=== PATIENT | female | born 1970 | race Caucasian/White ===

== ENCOUNTER 2025-05-09 15:31 | Inpatient (IN) | payer BC, SELFPAY ==
[2025-05-09 11:17] VITALS: BP 151/64
--- NOTE | 2025-05-09 11:38 | ED.GENMED ---
History of Present Illness
General
Chief Complaint: Musculo-Skeletal Complaint
Source: patient
Exam Limitations: none
Time Seen by Provider: 05/09/25 11:25
History of Present Illness
History of Present Illness:
See MDM
Past History
Past History
ED Past Medical History: None
ED Past Surgical History: None
Social History
Tobacco: Non-smoker
Alcohol: None
Phy Exam
Physical Exam
Physical Exam:
See MDM
Course
Orders/Labs/Results
Orders:
Orders
05/09/25 11:33
HYDROmorphone [Dilaudid] 1 mg IV NOW STA
Ondansetron Injectable [Zofran] 4 mg IV NOW STA
Foot, Left 3 View [CR Foot - Left Min 3 Views] Urgent
Comment:
Reason For Exam: fall, pain to dorsum of Left foot
Knee, Right 4 or More Views [CR Knee- Right 4 Or More View*] Urgent
Comment:
Reason For Exam: fall, R knee pain and deformity
05/09/25 13:20
Knee Immobilizer Right-Treatme ONCE
HYDROmorphone [Dilaudid] 1 mg IV NOW STA
05/09/25 13:21
Case Management Consult ONCE
Case Management Consult: Discharge Planning
Pt Eval And Treat Urgent
Activity Level: Out of Bed-Early Mobility
05/09/25 14:41
Consult Orthopedic [ORTHOPEDIC CONSULT] Routine
Consulting Provider: Letitia Bhardwaj I.
Was physician already notified: Yes
05/09/25 14:54
Complete Blood Count/With Diff Urgent
Comprehensive Metabolic Panel Urgent
05/09/25 14:55
CT Lower Ext W/o Iv Cont Rt Urgent
Comment:
Reason For Exam: R knee injury
05/09/25 14:57
Ondansetron Injectable [Zofran] 4 mg IV NOW STA
Abnormal Lab Results
05/09/25
14:54
WBC 14.0 H 10^3/uL
(4.8-10.8)
Hct 36.8 L %
(37.0-47.0)
MPV 11.2 H fL
(7.4-10.4)
Abs Immat Gran (auto) 0.1 H 10^3/uL
(0-0.05)
Absolute Neuts (auto) 9.8 H 10^3/uL
(1.4-6.5)
05/09/25 14:54
Vital Signs
Initial and Last Documented VS:
Initial Vital Signs
Temp Pulse Resp BP Pulse Ox
98.3 F 54 20 151/64 98
05/09/25 11:17 05/09/25 11:17 05/09/25 11:17 05/09/25 11:17 05/09/25 11:17
Last Documented Vital Signs
Temp Pulse Resp BP Pulse Ox
98.3 F 54 20 151/64 98
05/09/25 11:17 05/09/25 11:17 05/09/25 11:17 05/09/25 11:17 05/09/25 11:43
MDM/Problems Addressed
Differential Diagnosis Includes:
Note:
CHIEF COMPLAINT(S)
Right knee injury and left foot pain following a fall.
HISTORY OF PRESENT ILLNESS
The patient is a 55-year-old female who presented following an incident where she 'surfed on the [employer],' resulting in an injury to the Right knee and minor pain in the left foot. The incident occurred as she was walking out the back door. The
patient described significant difficulty in moving the knee, expressing that it is 'really hard to move.' Examination reveals a notable divot near the knee suggesting potential ligamentous injury, possibly a torn ligament, with concerns for both
ligamentous damage and possible patellar fracture. Tenderness is present around the knee, and there is observable patellar elevation, which is concerning for structural changes. The patient reports mild discomfort in the left foot, which appears
less severe and might be a sprain; however, an x-ray was deemed necessary due to the distracting nature of the knee injury.
No known allergies to sulfa drugs. She mentioned a previous episode of nausea following anesthesia, but no reactions to pain medication were noted. Pain management with Dilaudid (hydromorphone) is planned due to the severity of the knee pain and
potential need for manipulation during imaging. Prophylactic anti-nausea medication will also be administered.
EXTERNAL RECORDS REVIEWED
The patient referenced a past admission for a brain bleed at [facility] where she received anesthesia medications that resulted in sleep.
PHYSICAL EXAM
General: Alert, no acute distress.
Skin: Warm, dry.
Head: Normocephalic, atraumatic
Neck: Appears supple, trachea midline.
Eyes, Ears, Nose, Mouth, and Throat: Moist mucous membranes
Cardiovascular: No signs of cyanosis
Respiratory: Respirations are non-labored.
Abdomen: Non-distended
Musculoskeletal: Deformity to right knee with small abrasion above patella. Patella appears to be high riding. Decreased range of motion secondary to pain. Distal extremity neurovascularly intact. Very mild tenderness to dorsum of left foot
without evidence of vascular injury
Neurological: No focal neurological deficit observed.
Psychiatric: Cooperative, appropriate mood and affect.
PLAN
1. Administer Dilaudid for pain management.
2. Prophylactic administration of anti-nausea medication.
3. Obtain x-rays of the left knee and left foot to assess for fractures or other structural damage.
4. Evaluate the possibility of admitting the patient for short-term rehabilitation if necessary.
DIFFERENTIAL DIAGNOSIS
The Differential Diagnosis includes, in no particular order and is not limited to:
1. Ligamentous injury of the knee
2. Patellar fracture
3. Knee dislocation
4. Meniscal tear
5. Ankle sprain
6. Fracture of the ankle
7. Tibial plateau fracture
8. Osteoarthritis exacerbation
9. Bursitis
10. Soft tissue contusion.
SUMMARY OF ENCOUNTER
The patient presented following a fall resulting in significant difficulty moving the left knee and minor pain in the left foot. Examination suggested a possible ligamentous injury and suspected patellar fracture of the left knee. Mild discomfort in
the left foot was noted, suspected to possibly be a sprain. X-rays confirmed a right patellar fracture and a fourth metatarsal fracture in the left foot. Due to these injuries, the patient is unable to bear weight. Case management and physical
therapy were consulted. Orthopedic team is aware of the fractures, and the patient will be admitted for pain control and further orthopedic evaluation to possibly address the fractures in the inpatient setting.
DISPOSITION
Admit
ASSESSMENT
- Right patellar fracture
- Left fourth metatarsal fracture
MANAGEMENT OF THE PATIENTS CARE WAS DISCUSSED WITH
Case discussed with physical therapy, case management, and orthopedics for further evaluation and potential surgical intervention.
MEDICAL DECISION MAKING
-Complexity of Data Reviewed:
Chronic conditions affecting care include the knee ligamentous injury, patellar fracture, potential knee dislocation, meniscal tear, ankle sprain, ankle fracture, tibial plateau fracture, osteoarthritis exacerbation, bursitis, and soft tissue
contusion.
-Data:
- Category 3:
Discussion of management with physical therapy, case management, and orthopedics concerning further management planning for the fractures and potential surgical intervention.
-Risk:
Due to the confirmed fractures, the patient is at risk for significant morbidity without appropriate management. Prescription medication was prescribed for pain management and the need for inpatient care for potential surgical intervention was
determined.
*Pulse Oximetry
SaO2: 98
Oxygen Mode of Delivery: Room air
Patient hypoxic: no
*Critical Care Note
Total Time (30-74mins, 75-104mins- exclusive of procedures): Not Applicable
ED Attending Note
-
Portions of this chart may have been created with voice recognition software.� Occasional wrong word or��sound alike� substitutions may have occurred due to the inherent limitations of voice recognition software.
Discharge Plan
Departure
Patient Disposition: Admit
Date of Disposition: 05/09/25
Time of Disposition: 15:14
Admit to: Med/Surg
Presentation/result/management discussed w/ accepting MD/DO: Hospitalist
Discharge Problem:
Patellar fracture
Referrals:
UNKNOWN - PT DOES,NOT KNOW [Family Provider]
Interventions
Interventions:
*General Assessment Last Done: 05/09/25 11:17
ED-Musculoskeletal Assessment Last Done: 05/09/25 11:29
Discharge Date and Time
Print Language: YI
[2025-05-09] MEDS: ZOFRAN 4 MG IV ×2 (11:54→15:14)
[2025-05-09] MEDS: DILAUDID 1 MG IV ×2 (11:54→14:01)
--- NOTE | 2025-05-09 14:52 | CM ---
Patient seen at bedside with present in ED> Patient states that she has 13 steps to enter home. Patient has no DME at home. Patient lives in [facility] and her PCP is Dr. Sotelo, patient uses the [facility] in [facility]. Patient stated she
is awaiting admission due to probable need for surgery on her knee. Patient seen by therapy and pending pain levels and needing immobilizer for assessment to clarify level of care needed. Patient stated that she would be open to SNF or Acute Rehab
pending recommendations. CM updated physician and await medical treatment plan. CM will continue to follow for discharge planning needs.
Plan;SNF vs Acute Rehab pending medical treatment plan
[2025-05-09 15:05] LABS: Hematocrit 36.8 % (37.0-47.0); Hemoglobin 12.4 g/dL (12.0-16.0); Mean Corp Hgb Conc. 33.7 g/dL (33.0-37.0); Mean Corpuscular Volume 84.0 fL (81.0-99.0); Nucleated Red Blood Cells % 0 %; Platelet Count 345 10^3/uL (130-400); Red Cell Dist. Width 13.3 % (11.5-14.5)
[2025-05-09 15:21] LABS: ALT (SGPT) 15 U/L (0-35); AST (SGOT) 18 U/L (14-36); Albumin 4.4 g/dl (3.5-5.0); Alkaline Phosphatase 74 U/L (38-126); Blood Urea Nitrogen 16 mg/dl (7-17); Calcium 9.4 mg/dl (8.4-10.2); Carbon Dioxide 26 mmol/L (22-30); Chloride 107 mmol/L (98-107); Glucose 154 mg/dl (70-99); Potassium 4.7 mmol/L (3.5-5.1); Total Protein 7.3 g/dl (6.3-8.2); eGFR > 60.00
--- NOTE | 2025-05-09 15:25 | HPS.HSE ---
Family Physician
-
Family Physician: NOT KNOW UNKNOWN - PT DOES
Chief Complaint
-
Right knee and left foot pain
History of Present Illness
Ms. Tate is a 55-year-old female with a medical history of breast cancer (status post bilateral mastectomy, lymph node resection, chemo and radiation), hypertension, and GERD who presented from home with right knee and left foot pain following
a mechanical fall. She sustained a small horizontal laceration on her anterior right knee with generalized swelling of the joint and some mild ecchymosis on the lateral aspect of her left foot. Her vital signs have remained stable and her lab work
has been generally unremarkable. Imaging of her right knee shows an acute comminuted and displaced patellar fracture. X-ray of her left foot shows a possible subacute fracture of the base of the fourth metatarsal. Orthopedics was notified. Her
right knee was immobilized with a brace. She was given pain medications and admitted for further evaluation and management.
Medical History
Past Medical History
Past Medical History: Reports Other
Additional Past Medical History:
breast cancer (status post bilateral mastectomy, lymph node resection, chemo and radiation), hypertension, and GERD
Past Surgical History: Reports Other
Additional Past Surgical History:
Bilateral mastectomy and lymph node resection
Social History
Tobacco: Non-smoker
Alcohol: None
Personal:
Living: With Family
Family History
Family History: Not pertinent
Allergies / Home Medications
Allergies reflects when Allergies were last updated in [facility].
Home Medications with original date entered in [facility]
Allergy/Medication List:
Allergies
Allergy/AdvReac Type Severity Reaction Status Date / Time
Penicillins Allergy Unknown Verified 05/09/25 11:17
Sulfa (Sulfonamide Allergy Unknown Verified 05/09/25 11:17
Antibiotics)
Home Medications
anastrozole 1 mg tablet 1 mg PO DAILY 05/09/25
carvedilol 6.25 mg tablet (Coreg) 6.25 mg PO BID 05/09/25
ergocalciferol (vitamin D2) 1,250 mcg (50,000 unit) capsule 1,250 mcg PO MO 05/09/25
losartan 100 mg tablet 100 mg PO DAILY 05/09/25
pantoprazole 40 mg tablet,delayed release (Protonix) 40 mg PO DAILY 05/09/25
Review of Systems
-
History Source: Patient
A 12 point ROS was completed and negative except as noted: Yes
Musculoskeletal: Reports Other (Right knee pain and swelling, left lateral foot pain)
Physical Exam
Vital Signs
Vital Signs
Temp Pulse Resp BP Pulse Ox
98.3 F 54 20 151/64 98
05/09/25 11:17 05/09/25 11:17 05/09/25 11:17 05/09/25 11:17 05/09/25 11:43
Physical Exam
General: No Apparent Distress
Laboratory Results
-
05/09/25 14:54
05/09/25 14:54
Laboratory Results
Total Bilirubin 0.5 mg/dl (0.2-1.3) 05/09/25 14:54
AST 18 U/L (14-36) 05/09/25 14:54
ALT 15 U/L (0-35) 05/09/25 14:54
Alkaline Phosphatase 74 U/L (38-126) 05/09/25 14:54
Impression/Plan
-
General: No Apparent Distress, Comfortable and Conversant
HEENT: NormoCephalic, Moist mucous membranes, Atraumatic
Respiratory: Clear and Non Labored Respirations
Cardiac: S1/S2 and Regular Rhythm; No Rub or Gallop
GI: Soft, Non Tender, Non Distended and Normal Bowel Sounds
Musculoskeletal: Right knee in immobilizer, anterior right knee with approximately 1 cm horizontal laceration in generalized swelling, mild ecchymosis of left lateral foot
Skin: Warm and dry
: NO [place]
Neuro: Awake, Alert, Nonfocal/grossly intact
Psych: Calm and Intact Judgment/Insight
Ms. Tate is a 55-year-old female with a medical history of breast cancer (status post bilateral mastectomy, lymph node resection, chemo and radiation), hypertension, and GERD who presented from home with right knee and left foot pain following
a mechanical fall. She sustained a small horizontal laceration on her anterior right knee with generalized swelling of the joint and some mild ecchymosis on the lateral aspect of her left foot. Her vital signs have remained stable and her lab work
has been generally unremarkable. Imaging of her right knee shows an acute comminuted and displaced patellar fracture. X-ray of her left foot shows a possible subacute fracture of the base of the fourth metatarsal. Orthopedics was notified. Her
right knee was immobilized with a brace. She was given pain medications and admitted for further evaluation and management.
Right patellar fracture:
- Keep in immobilizer, nonweightbearing for now
- Pain control as needed
- Ortho consulted
Left foot pain, possible fracture:
- X-ray shows possible fracture of base of fourth metatarsal
- Nonweightbearing for now
- Orthopedics consulted
Hypertension:
- Continue home losartan 100 mg p.o. daily and carvedilol 6.25 mg p.o. daily
GERD:
- Continue home Protonix daily
History of breast cancer:
- Status post bilateral mastectomy, lymph node resection, chemoradiation
- Primary oncology team at [place], breast surgeon at [facility]
- Currently without recurrence
- Continue anastrozole 1 mg daily
DVT prophylaxis: Subcu heparin
CODE STATUS: Full code
[2025-05-09 15:43] LABS: Sodium 138 mmol/L (135-145)
[2025-05-09 16:32] VITALS: BP 122/74
[2025-05-09 17:55] VITALS: BP 160/72
[2025-05-09 17:56] VITALS: BMI 24.7
[2025-05-09] MEDS: HEPARIN 5000 UNITS SC ×2 (18:29→22:41)
[2025-05-09] MEDS: ROXICODONE 5 MG PO ×2 (18:30→22:45)
--- NOTE | 2025-05-09 18:46 | PTCARENOTE ---
pt arrived to floor at 1740, on bedrest, knee immobilizer in place. small 1 inch laceration over knee with beginning of bruising, placed a silicone foam. faint bluish bruising on lateral aspect of left foot. + pedals/sensation/toe wiggle. bed low
HOB up, call mtz in reach, dinner ordered.
--- NOTE | 2025-05-09 20:12 | CON.ORTHO ---
Consultation
-
Date/Time Consultation Requested: 05/09/2025 1421
Date/Time Consultation Performed: 05/09/2025 1930
Requesting Provider: Dr. Ayaan Roberts
Performing Provider: GALINDO Barnard
Reason for Consultation: L foot fx, R patella fx
Consultation - Orthopedics
History
55-year-old female presenting from [place] emergency room at admission for mechanical fall with direct impact of her right knee and possible twisting injury of her left foot and ankle. She had inability bear weight was seen in the emergency room
and diagnosed with a fourth metatarsal fracture of the left side and displaced right patella fracture. For social concerns of the amatory status and fall risk he was admitted. She denies any prodromal pain of either lower extremity. Denies any
other injury sustained. She does report a small superficial laceration of her right knee and swelling of the right knee. Denies any associated paresthesias. Denies any chronic knee or foot and ankle pain bilaterally.
Allergies / Home Medications
Past Medical History: Reports Other
Additional Past Medical History:
breast cancer (status post bilateral mastectomy, lymph node resection, chemo and radiation), hypertension, and GERD
Past Surgical History: Reports Other
Additional Past Surgical History:
Bilateral mastectomy and lymph node resection
Social History
Tobacco: Non-smoker
Alcohol: None
Personal:
Living: With Family
Family History
Family History: Not pertinent
Allergies / Home Medications
Allergy/AdvReac Type Severity Reaction Status Date / Time
Penicillins Allergy Unknown Verified 05/09/25 11:17
Sulfa (Sulfonamide Allergy Unknown Verified 05/09/25 11:17
Antibiotics)
�Medication �Instructions �Recorded
anastrozole 1 mg tablet 1 mg PO DAILY 05/09/25
carvedilol 6.25 mg tablet (Coreg) 6.25 mg PO BID 05/09/25
ergocalciferol (vitamin D2) 1,250 1,250 mcg PO MO 05/09/25
mcg (50,000 unit) capsule
losartan 100 mg tablet 100 mg PO DAILY 05/09/25
pantoprazole 40 mg tablet,delayed 40 mg PO DAILY 05/09/25
release (Protonix)
Vital Signs / Lab Results
Temp Pulse Resp BP Pulse Ox
98.4 F 61 15 160/72 97
05/09/25 17:55 05/09/25 17:55 05/09/25 17:55 05/09/25 17:55 05/09/25 17:55
PHYSICAL EXAM:
Focused examination of the left lower extremity shows skin intact. There is mild amount of ecchymosis in the area of the sinus tarsi. There is no tenderness about the fifth metatarsal head proximally or to the mid distal foot. No pain with ankle
range of motion. Neuro vastly intact L3-S1.
Focused examination of the right lower extremity after removal of her knee immobilizer shows a superficial abrasion. There is a large effusion about the right knee. Range of motion was not challenged. Neurovascularly intact L3-S1
IMAGING:
X-rays and CT scan of the right knee shows a comminuted displaced patella fracture without baseline arthrosis.
X-rays taken of the left foot on oblique view show a radiolucent suspected spiral fracture however seen on 1 view, likely acute fracture
05/09/25 14:54
05/09/25 14:54
Assessment / Plan
55-year-old female DOI 09 May 2025 with a displaced comminuted right patella fracture and suspected nondisplaced left fourth metatarsal base fracture
1. Right patella fracture:
Images were shown and discussed with the patient regarding their injury of the right patella. The injury and respective operative and nonoperative interventions reviewed with the patient and respective family members to include the risks and
benefits rehabilitation and prognosis for each. The treatment and operative technique, postoperative follow-up, postoperative rehabilitation and surgical prognosis was reviewed in detail. After thorough discussion of potential treatment options
the patient and respective family members wish to proceed with operative intervention. Plan for right patella ORIF however pending time and availability with operating room.
-Maintain knee immobilizer. SCDs while in bed.
2. Suspected left fourth metatarsal base nondisplaced fracture
- Discussed consideration of treatment versus CT scan secondary to physical exam
- Attending surgeon recommending beginning with tall cam boot; DME order placed. May be weightbearing as tolerated. Repeat x-rays in 4 weeks
[2025-05-09] MEDS: TYLENOL 650 MG PO (21:06)
[2025-05-09] MEDS: COLACE 100 MG PO (21:06)
[2025-05-09] MEDS: COREG 6.25 MG PO (21:07)
[2025-05-09 23:31] VITALS: BP 134/71
[2025-05-10] MEDS: ROXICODONE 5 MG PO ×3 (05:59→20:44)
[2025-05-10] MEDS: TYLENOL 650 MG PO (05:59)
[2025-05-10 07:25] VITALS: BP 150/78
[2025-05-10] MEDS: COZAAR 100 MG PO (08:18)
[2025-05-10] MEDS: COREG 6.25 MG PO ×2 (08:18→20:44)
[2025-05-10] MEDS: PROTONIX 40 MG PO (08:18)
[2025-05-10] MEDS: ARIMIDEX 1 MG PO (08:18)
[2025-05-10] MEDS: COLACE 100 MG PO ×2 (08:18→20:44)
[2025-05-10] MEDS: HEPARIN 5000 UNITS SC ×3 (08:19→23:15)
[2025-05-10] MEDS: DRISDOL (VITAMIN D2) 50000 UNITS PO (08:21)
--- NOTE | 2025-05-10 09:42 | CM ---
Patient seen at bedside
OR on Saturday
Patient resides with her in [facility], in a condo, 13 steps to get into the condo
states she was in [place] with college friends at air bnb when she fell.
PLOF: independent
cm to follow post-op PT/OT recs - patient interested in acute rehab
PLAN: TBD, ?acute vs. snf, CM to follow up post-op for discharge planning needs
--- NOTE | 2025-05-10 10:11 | W.PN.UPDATE ---
Update Note
Progress Note Update
KI in place RLE. Small abrasion anteriorly which is dressed. No signs of infection here. Calf soft, nontender. DNVI RLE. pain over the tarsal bones of the left foot. Aabsolutely no pain at the base of the fourth metatarsal. Ankle and subtalar
joint motion painful but unrestricted. DNVI LLE.
At length bedside discussion with the patient yields her understanding to the nature of her right patella fracture. we discussed all nonoperative and operative management, including the RBAs of each approach to management. We strongly recommend
surgical correction, which she is in agreement with after accepting all the proposed risks. She does have a small abrasion over the anterior knee but I am not concerned about a traumatic arthrotomy here and should not interfere with surgery. local
wound care here. She will remain in her knee immobilizer WBAT. we did discuss the potential for a transfer down to Dr. Camden Keenan at [facility] (where her nephew is a sports medicine fellow), however she is comfortable staying here in the local area at
[facility] to proceed with surgery. I discussed the case with Dr. Del Howard, who has availability this Saturday to proceed with operative correction. She is comfortable with this plan. I did explain that I could not forecast timing
of surgery with a potential transfer. she would like to proceed sooner rather than later if possible. Surgical and blood consents have been signed and placed to the patient's chart. operative site marked as the right knee. I will have Dr. Howard
touch base via phone. OR aware. Orders placed for anticipated Saturday surgery, including NPO. Again, she may continue WBAT RLE with immobilizer in place. Regarding her left foot/ankle she does have a history of stress fracture, which she
believes was the fourth metatarsal. This may be the abnormality noted on radiographs. She does not have any pain at the base of the fourth metatarsal, more so over the tarsal bones. CAM boot has been ordered, however I will request a CT to rule
out acute fracture which may allow for a more tolerable orthotic (shoe/brace), making her weightbearing status more easier on a walker (she reports having a boot in the past, which was difficult). will follow-up on the CT. Again, the plan for
surgery will be Saturday barring anything unforeseen
--- NOTE | 2025-05-10 13:53 | W.PN.HOSP.TC ---
Today's Communication/Plan
-
Laxative for constipation
Ortho planning for patient to take the OR on Saturday
Assessment / Plan
Assessment / Plan
Right patellar fracture:
- CT RLE : Acute comminuted displaced right patellar fracture. Associated hematoma, soft tissue swelling and small suprapatellar joint effusion.
- Keep in immobilizer, WBAT
- Pain control as needed
- Orthopedic surgery consulted and patient is planned to taken to the OR on Saturday
Acute avulsion fracture of calcaneum
History of metatarsal stress fracture
- X-ray shows possible fracture of base of fourth metatarsal - presumably old changes
- CT LLE : Acute avulsion fracture anterior, lateral calcaneus as above. No other acute fracture identified.
Essential Hypertension:
- Continue home losartan 100 mg p.o. daily and carvedilol 6.25 mg p.o. daily
GERD:
- Continue home Protonix daily
History of breast cancer:
- Status post bilateral mastectomy, lymph node resection, chemoradiation
- Primary oncology team at [place], breast surgeon at [facility]
- Currently without recurrence
- Continue anastrozole 1 mg daily
DVT prophylaxis: Subcu heparin
CODE STATUS: Full code
Anticipated Discharge: > 48 hours
Subjective/Interval History
-
Date of Service: May 10, 2025
Complaining of some right knee and foot pain
Constipated no abdominal pain nausea vomiting
No other issues reported
Objective Data
-
Vital Signs:
Vital Signs
Temp Pulse Resp BP Pulse Ox
99.3 F 60 16 150/78 94
05/10/25 07:25 05/10/25 08:18 05/10/25 07:25 05/10/25 08:18 05/10/25 08:00
I&O
10/12/25 10/13/25 10/14/25
06:59 06:59 06:59
Output Total 250 / 250
Balance -250 / -250
Review of Systems
-
Respiratory: Reports No Symptoms
Cardiac: Reports No Symptoms
Abdomen/GI: Reports No Symptoms
Physical Exam
-
General: Comfortable
HEENT: Negative Oxygen
Musculoskeletal: Other (Right leg immobilizer, right knee effusion)
Neuro: Awake, Alert, Oriented, No Motor Deficits and Nonfocal/Grossly Intact
Psych: Calm
[2025-05-10 15:25] VITALS: BP 122/72
[2025-05-10] MEDS: MIRALAX 17 GRAMS PO (16:28)
[2025-05-10 23:18] VITALS: BP 113/56
[2025-05-11] MEDS: HYDROCORTISONE 1% CREAM 1 APPLIC TOPICAL (06:29)
[2025-05-11 07:25] VITALS: BP 144/75
--- NOTE | 2025-05-11 07:35 | W.PN.UPDATE ---
Update Note
Progress Note Update
Ms. Tate is resting comfortably in bed this morning. She does report continued pain about her right knee and left foot.
Directed exam of the right lower extremity reveals dressing overlying abrasion on anterior knee. Expected effusion about the right knee. Mild tenderness about the patella. Calf soft and nontender. NVID.
Directed exam of the left foot reveals edema about the lateral malleolus and proximal lateral foot. Tenderness over the anterolateral calcaneus and cuboid. No tenderness elsewhere in the foot. NVID.
CT LLE IMPRESSION: Acute avulsion fracture anterior, lateral calcaneus as above. No other acute fracture identified.
Right patella fracture
--She is planned for ORIF right patella under the direction of Dr. Howard tomorrow.
--Continue knee immobilizer until surgery. May be WBAT to RLE with KI. No flexion of the right knee.
--Pain control prn.
--NPO after midnight for OR tomorrow.
Avulsion fracture of left calcaneus
--Veda's CT results were reviewed with her today. She does have a small, nondisplaced avulsion fracture off the anterolateral aspect of her calcaneus. This can be managed non-operatively. She may continue ambulating in the CAM boot for comfort.
She may perform gentle ROM of her ankle at rest.
[2025-05-11] MEDS: ROXICODONE 5 MG PO ×2 (09:17→21:26)
[2025-05-11] MEDS: COLACE 100 MG PO ×2 (09:18→19:35)
[2025-05-11] MEDS: COREG 6.25 MG PO ×2 (09:18→19:38)
[2025-05-11] MEDS: PROTONIX 40 MG PO (09:18)
[2025-05-11] MEDS: ARIMIDEX 1 MG PO (09:18)
[2025-05-11] MEDS: HEPARIN 5000 UNITS SC ×2 (09:19→15:50)
[2025-05-11] MEDS: COZAAR 100 MG PO (09:19)
--- NOTE | 2025-05-11 13:53 | W.PN.HOSP.TC ---
Today's Communication/Plan
-
for OR tomorrow
Assessment / Plan
Assessment / Plan
Right patellar fracture:
- CT RLE : Acute comminuted displaced right patellar fracture. Associated hematoma, soft tissue swelling and small suprapatellar joint effusion.
- Keep in immobilizer, WBAT
- Pain control as needed
- Orthopedic surgery consulted and patient is planned to taken to the OR on Saturday
Acute avulsion fracture of calcaneum
History of metatarsal stress fracture
- X-ray shows possible fracture of base of fourth metatarsal - presumably old changes
- CT LLE : Acute avulsion fracture anterior, lateral calcaneus as above. No other acute fracture identified.
- Ortho recommended CAM boot
Essential Hypertension:
- Continue home losartan 100 mg p.o. daily and carvedilol 6.25 mg p.o. daily
GERD:
- Continue home Protonix daily
History of breast cancer:
- Status post bilateral mastectomy, lymph node resection, chemoradiation
- Primary oncology team at [place], breast surgeon at [facility]
- Currently without recurrence
- Continue anastrozole 1 mg daily
DVT prophylaxis: Subcu heparin
CODE STATUS: Full code
Anticipated Discharge: > 48 hours
Subjective/Interval History
-
Date of Service: May 11, 2025
resting comfortably in bed
no reported issues overnight
Objective Data
-
Vital Signs:
Vital Signs
Temp Pulse Resp BP Pulse Ox
99.7 F 63 18 138/76 97
05/11/25 07:25 05/11/25 09:19 05/11/25 07:25 05/11/25 09:19 05/11/25 12:08
I&O
05/10/25 05/11/25 05/12/25
06:59 06:59 06:59
Intake Total 1040 / 1040
Output Total 250 / 250 350 / 350
Balance -250 / -250 690 / 690
Review of Systems
-
Respiratory: Reports No Symptoms
Cardiac: Reports No Symptoms
Abdomen/GI: Reports No Symptoms
Physical Exam
-
General: Comfortable
HEENT: Other (Red eye); Negative Oxygen
Musculoskeletal: Other (Right leg immobilizer, right knee effusion)
Neuro: Awake, Alert, Oriented, No Motor Deficits and Nonfocal/Grossly Intact
Psych: Calm
[2025-05-11 15:38] VITALS: BP 107/61
[2025-05-11] MEDS: REFRESH EYE DROPS (PF) 1 DROPS OPHTH (15:59)
--- NOTE | 2025-05-11 15:59 | CM ---
CM reviewed chart, patient for OR tomorrow, 05/12 for ORIF right patella
Patient interested in Acute Rehab- will need PT/OT orders post-op to determine level of care.
CM will continue to follow.
Plan; OR tomorrow, will need PT/OT post-op to determine discharge need
[2025-05-11] MEDS: MIRALAX 17 GRAMS PO (19:18)
[2025-05-11] MEDS: HYDROCORTISONE 2.5% CREAM 1 APPLIC TOPICAL (19:37)
[2025-05-11 23:59] VITALS: BP 124/74
[2025-05-12] VITALS (11 sets, daily range): BP systolic 117–159; BP diastolic 58–87
[2025-05-12] MEDS: HEPARIN 5000 UNITS SC ×4 (00:13→23:52)
[2025-05-12] MEDS: DILAUDID 0.5 MG IV ×3 (05:15→16:01)
[2025-05-12 06:12] LABS: Hematocrit 36.8 % (37.0-47.0); Hemoglobin 11.7 g/dL (12.0-16.0); Mean Corp Hgb Conc. 31.8 g/dL (33.0-37.0); Mean Corpuscular Volume 92.2 fL (81.0-99.0); Platelet Count 295 10^3/uL (130-400); Red Cell Dist. Width 13.6 % (11.5-14.5)
[2025-05-12 06:27] LABS: APTT 31.8 Sec (23.4-35.0); INR 0.97; PT 13.2 Sec (11.4-14.6)
[2025-05-12 06:35] LABS: Blood Urea Nitrogen 18 mg/dl (7-17); Calcium 9.8 mg/dl (8.4-10.2); Carbon Dioxide 31 mmol/L (22-30); Chloride 102 mmol/L (98-107); Estimated Creatinine Clearance 67 ml/min; Glucose 125 mg/dl (70-99); Potassium 4.6 mmol/L (3.5-5.1); Sodium 137 mmol/L (135-145); eGFR > 60.00
--- NOTE | 2025-05-12 07:50 | W.PN.UPDATE ---
Update Note
Progress Note Update
Patient is scheduled for OR today for her right patella fracture under the direction of Dr. Howard. All remaining questions answered. NPO until surgery. Knee immobilizer until surgery, may be WBAT with knee immobilizer in place. CAM boot to LLE
when ambulating. Pain control prn.
[2025-05-12] MEDS: ARIMIDEX 1 MG PO (08:12)
[2025-05-12] MEDS: COREG 6.25 MG PO ×2 (08:12→20:52)
[2025-05-12] MEDS: PROTONIX 40 MG PO (08:12)
[2025-05-12] MEDS: COLACE 100 MG PO ×2 (08:12→20:52)
[2025-05-12] MEDS: COZAAR 100 MG PO (08:13)
[2025-05-12] MEDS: HYDROCORTISONE 2.5% CREAM 1 APPLIC TOPICAL ×2 (08:14→21:44)
[2025-05-12] MEDS: REFRESH EYE DROPS (PF) 1 DROPS OPHTH (08:17)
--- NOTE | 2025-05-12 12:34 | W.PN.HOSP.TC ---
Today's Communication/Plan
-
for OR today
continue other care
Assessment / Plan
Assessment / Plan
Right patellar fracture:
- CT RLE : Acute comminuted displaced right patellar fracture. Associated hematoma, soft tissue swelling and small suprapatellar joint effusion.
- Keep in immobilizer, WBAT
- Pain control as needed
- Orthopedic surgery consulted and patient is planned to taken to the OR on Saturday
Acute avulsion fracture of calcaneum
History of metatarsal stress fracture
- X-ray shows possible fracture of base of fourth metatarsal - presumably old changes
- CT LLE : Acute avulsion fracture anterior, lateral calcaneus as above. No other acute fracture identified.
- Ortho recommended CAM boot
Essential Hypertension:
- Continue home losartan 100 mg p.o. daily and carvedilol 6.25 mg p.o. daily
GERD:
- Continue home Protonix daily
History of breast cancer:
- Status post bilateral mastectomy, lymph node resection, chemoradiation
- Primary oncology team at [place], breast surgeon at [facility]
- Currently without recurrence
- Continue anastrozole 1 mg daily
DVT prophylaxis: Subcu heparin
CODE STATUS: Full code
Anticipated Discharge: 24 - 48 hours
Subjective/Interval History
-
Date of Service: May 12, 2025
Resting comfortable in bed
No new complaints overnight
Objective Data
-
Labs:
Laboratory Results
05/12/25
05:53
WBC 10.5
Hgb 11.7 L
Hct 36.8 L
Plt Count 295
PT 13.2
INR 0.97
APTT 31.8
Sodium 137
Potassium 4.6
Chloride 102
Carbon Dioxide 31 H
BUN 18 H
Creatinine 0.8
Glucose 125 H
Calcium 9.8
Vital Signs:
Vital Signs
Temp Pulse Resp BP Pulse Ox
98.8 F 59 16 120/73 97
05/12/25 07:30 05/12/25 08:13 05/12/25 07:30 05/12/25 08:13 05/12/25 11:12
I&O
05/11/25 05/12/25 05/13/25
06:59 06:59 06:59
Intake Total 1040 / 1040 120 / 120
Output Total 350 / 350 1500 / 1500
Balance 690 / 690 -1380 / -1380
Review of Systems
-
Respiratory: Reports No Symptoms
Cardiac: Reports No Symptoms
Abdomen/GI: Reports No Symptoms
Physical Exam
-
General: Comfortable
HEENT: Other (Red eye); Negative Oxygen
Musculoskeletal: Other (Right leg immobilizer, right knee effusion)
Neuro: Awake, Alert, Oriented, No Motor Deficits and Nonfocal/Grossly Intact
Psych: Calm
--- NOTE | 2025-05-12 16:17 | CM ---
For OR today .
Will need PT eval postop for dc planning.
As per note will be NWBT with knee immobilizer.
PLAN PT OT postop for dc planning
--- NOTE | 2025-05-12 19:10 | PTCARENOTE ---
1630 Pt arrived from PACU. VSS. 2L O2. Neurovascular checks WNL. R knee zeroform, 4x4, ABD, ELLY, and knee immobilizer.
[2025-05-12] MEDS: ROXICODONE 5 MG PO (20:57)
[2025-05-12] MEDS: ANCEF 5 IV (20:58)
[2025-05-13] VITALS (7 sets, daily range): BP systolic 118–139; BP diastolic 52–71; PULSE 69–70; O2SAT 96
[2025-05-13] MEDS: ANCEF 5 IV (04:03)
[2025-05-13] MEDS: TYLENOL 650 MG PO (06:11)
--- NOTE | 2025-05-13 07:10 | W.PN.ORTHO ---
Today's Communication / Plan
-
PT/OT
Right knee immobilizer at all time and left lower extremity fracture boot
Weightbearing as tolerated
Ice with elevation to control swelling and pain
Heparin for DVT prophylactics per medicine and mechanical devices
Skin clip removal right knee 2 weeks postop
Follow-up with orthopedics 2 weeks for x-ray
Assessment
.
Distal Motor Intact: Yes
Dressing:
Clean, dry and intact.
Plan
.
Surgery / Date: ORIF R patealla 05/12 Ritting + L avulsion fx calc
DVT Prophylaxis: Heparin
Activity:
Out of bed.
PT/OT
Discharge Plan: SNF
Subjective
.
.:
Patient resting comfortably.
Vital Signs and Labs
.
Vital Signs and Labs:
Temp Pulse Resp BP Pulse Ox
98.3 F 63 16 124/56 94
05/13/25 03:22 05/13/25 03:22 05/13/25 03:22 05/13/25 03:22 05/13/25 03:22
PT 13.2 Sec (11.4-14.6) 05/12/25 05:53
INR 0.97 05/12/25 05:53
[2025-05-13 07:22] LABS: Hematocrit 36.1 % (37.0-47.0); Hemoglobin 11.4 g/dL (12.0-16.0); Mean Corp Hgb Conc. 31.6 g/dL (33.0-37.0); Mean Corpuscular Volume 91.6 fL (81.0-99.0); Platelet Count 328 10^3/uL (130-400); Red Cell Dist. Width 13.4 % (11.5-14.5)
[2025-05-13 07:36] LABS: Blood Urea Nitrogen 20 mg/dl (7-17); Calcium 9.6 mg/dl (8.4-10.2); Carbon Dioxide 28 mmol/L (22-30); Chloride 104 mmol/L (98-107); Estimated Creatinine Clearance 89 ml/min; Glucose 108 mg/dl (70-99); Potassium 5.0 mmol/L (3.5-5.1); Sodium 138 mmol/L (135-145); eGFR > 60.00
[2025-05-13] MEDS: PROTONIX 40 MG PO (08:44)
[2025-05-13] MEDS: COREG 6.25 MG PO ×2 (08:44→20:21)
[2025-05-13] MEDS: HEPARIN 5000 UNITS SC ×3 (08:45→23:12)
[2025-05-13] MEDS: ARIMIDEX 1 MG PO (08:45)
[2025-05-13] MEDS: COZAAR 100 MG PO (08:45)
[2025-05-13] MEDS: COLACE 100 MG PO ×2 (08:45→20:21)
[2025-05-13] MEDS: HYDROCORTISONE 2.5% CREAM 1 APPLIC TOPICAL ×2 (08:46→20:22)
[2025-05-13] MEDS: ROXICODONE 5 MG PO ×2 (08:54→20:27)
--- NOTE | 2025-05-13 13:13 | W.PN.HOSP.TC ---
Today's Communication/Plan
-
discharge planning for rehab
Assessment / Plan
Assessment / Plan
Right patellar fracture:
- CT RLE : Acute comminuted displaced right patellar fracture. Associated hematoma, soft tissue swelling and small suprapatellar joint effusion.
- Keep in immobilizer, WBAT
- Pain control as needed
- s/p ORIF of patella on Saturday
- PT/OT evaluation and rehab placement is recommended
Acute avulsion fracture of calcaneum
History of metatarsal stress fracture
- X-ray shows possible fracture of base of fourth metatarsal - presumably old changes
- CT LLE : Acute avulsion fracture anterior, lateral calcaneus as above. No other acute fracture identified.
- Ortho recommended CAM boot
Essential Hypertension:
- Continue home losartan 100 mg p.o. daily and carvedilol 6.25 mg p.o. daily
GERD:
- Continue home Protonix daily
History of breast cancer:
- Status post bilateral mastectomy, lymph node resection, chemoradiation
- Primary oncology team at [place], breast surgeon at [facility]
- Currently without recurrence
- Continue anastrozole 1 mg daily
DVT prophylaxis: Subcu heparin
CODE STATUS: Full code
Anticipated Discharge: Today
Subjective/Interval History
-
Date of Service: May 13, 2025
Resting comfortably in bed
No acute issues reported overnight
Objective Data
-
Labs:
Laboratory Results
05/13/25
06:12
WBC 12.5 H
Hgb 11.4 L
Hct 36.1 L
Plt Count 328
Sodium 138
Potassium 5.0
Chloride 104
Carbon Dioxide 28
BUN 20 H
Creatinine 0.6
Glucose 108 H
Calcium 9.6
Vital Signs:
Vital Signs
Temp Pulse Resp BP Pulse Ox
98.0 F 65 18 122/71 95
05/13/25 11:40 05/13/25 11:40 05/13/25 11:40 05/13/25 11:40 05/13/25 11:40
I&O
05/12/25 05/13/25 05/14/25
06:59 06:59 06:59
Intake Total 120 / 120 1165 / 1165 380 / 380
Output Total 1500 / 1500
Balance -1380 / -1380 1165 / 1165 380 / 380
Review of Systems
-
Respiratory: Reports No Symptoms
Cardiac: Reports No Symptoms
Abdomen/GI: Reports No Symptoms
Physical Exam
-
General: Comfortable
HEENT: Other (Red eye); Negative Oxygen
Musculoskeletal: Other (Right knee immobilizer, right knee effusion)
Neuro: Awake, Alert, Oriented, No Motor Deficits and Nonfocal/Grossly Intact
Psych: Calm
[2025-05-13] MEDS: DULCOLAX 10 MG PO (14:09)
[2025-05-13] MEDS: MIRALAX 17 GRAMS PO (17:11)
[2025-05-14 07:35] VITALS: BP 141/78
[2025-05-14] MEDS: HYDROCORTISONE 2.5% CREAM 1 APPLIC TOPICAL ×2 (07:58→21:16)
[2025-05-14] MEDS: ARIMIDEX 1 MG PO (08:00)
[2025-05-14] MEDS: COZAAR 100 MG PO (08:00)
[2025-05-14] MEDS: HEPARIN 5000 UNITS SC ×3 (08:01→23:06)
[2025-05-14] MEDS: COREG 6.25 MG PO ×2 (08:01→20:10)
[2025-05-14] MEDS: PROTONIX 40 MG PO (08:01)
[2025-05-14] MEDS: COLACE 100 MG PO ×2 (08:03→20:09)
[2025-05-14] MEDS: SENOKOT-S 1 TABLET PO (08:04)
[2025-05-14] MEDS: REFRESH EYE DROPS (PF) 1 DROPS OPHTH (08:17)
[2025-05-14] MEDS: ROXICODONE 5 MG PO ×3 (08:21→21:21)
[2025-05-14 09:21] LABS: Hematocrit 33.2 % (37.0-47.0); Hemoglobin 11.0 g/dL (12.0-16.0); Mean Corp Hgb Conc. 33.1 g/dL (33.0-37.0); Mean Corpuscular Volume 88.5 fL (81.0-99.0); Platelet Count 275 10^3/uL (130-400); Red Cell Dist. Width 13.8 % (11.5-14.5)
[2025-05-14 10:29] LABS: Blood Urea Nitrogen 21 mg/dl (7-17); Calcium 9.5 mg/dl (8.4-10.2); Carbon Dioxide 29 mmol/L (22-30); Chloride 101 mmol/L (98-107); Estimated Creatinine Clearance 67 ml/min; Glucose 197 mg/dl (70-99); Potassium 4.9 mmol/L (3.5-5.1); Sodium 136 mmol/L (135-145); eGFR > 60.00
[2025-05-14 11:02] VITALS: BP 145/81; PULSE 67; O2SAT 95
[2025-05-14 11:45] VITALS: BP 143/81; PULSE 67; O2SAT 95
--- NOTE | 2025-05-14 11:51 | W.PN.HOSP.TC ---
Today's Communication/Plan
-
physiatry evaluation and acute rehab placement
Assessment / Plan
Assessment / Plan
Right patellar fracture:
- CT RLE : Acute comminuted displaced right patellar fracture. Associated hematoma, soft tissue swelling and small suprapatellar joint effusion.
- Keep in immobilizer, WBAT
- Pain control as needed
- s/p ORIF of patella on Saturday
- PT/OT evaluation and rehab placement is recommended
Acute avulsion fracture of calcaneum
History of metatarsal stress fracture
- X-ray shows possible fracture of base of fourth metatarsal - presumably old changes
- CT LLE : Acute avulsion fracture anterior, lateral calcaneus as above. No other acute fracture identified.
- Ortho recommended CAM boot
Essential Hypertension:
- Continue home losartan 100 mg p.o. daily and carvedilol 6.25 mg p.o. daily
GERD:
- Continue home Protonix daily
History of breast cancer:
- Status post bilateral mastectomy, lymph node resection, chemoradiation
- Primary oncology team at [place], breast surgeon at [facility]
- Currently without recurrence
- Continue anastrozole 1 mg daily
Right eye congestion
- Possible irritation from incomplete closure of palpebral fissure during sleep
- refersh eye drops ordered
- recommended to follow with ophthalmology post discharge
DVT prophylaxis: Subcu heparin
CODE STATUS: Full code
Anticipated Discharge: Today
Subjective/Interval History
-
Date of Service: May 14, 2025
No reported new issues
Patient working with physical therapy during the morning rounds
Increased right eye congestion, no burning sensation
Objective Data
-
Labs:
Laboratory Results
05/14/25 05/14/25 05/14/25
08:28 09:47 09:56
WBC 9.8
Hgb 11.0 L
Hct 33.2 L
Plt Count 275
Sodium Cancelled 136
Potassium Cancelled 4.9
Chloride Cancelled 101
Carbon Dioxide Cancelled 29
BUN Cancelled 21 H
Creatinine Cancelled 0.8
Glucose Cancelled 197 H
Calcium Cancelled 9.5
Total Bilirubin Cancelled
AST Cancelled
ALT Cancelled
Alkaline Phosphatase Cancelled
Vital Signs:
Vital Signs
Temp Pulse Resp BP Pulse Ox
98.6 F 65 18 141/78 97
05/14/25 07:35 05/14/25 07:35 05/14/25 07:35 05/14/25 07:35 05/14/25 07:35
I&O
05/13/25 05/14/25 05/15/25
06:59 06:59 06:59
Intake Total 1165 / 1165 860 / 860 480 / 480
Balance 1165 / 1165 860 / 860 480 / 480
Review of Systems
-
Respiratory: Reports No Symptoms
Cardiac: Reports No Symptoms
Abdomen/GI: Reports No Symptoms
Physical Exam
-
General: Comfortable
HEENT: Other (Red eye); Negative Oxygen
Musculoskeletal: Other (Right knee immobilizer, right knee effusion)
Neuro: Awake, Alert, Oriented, No Motor Deficits and Nonfocal/Grossly Intact
Psych: Calm
--- NOTE | 2025-05-14 12:24 | CM ---
Met and spoke with patient concerning discharge planning. Patient has been recommended for acute rehab. She lives in [place] and initially wanted to go to [facility] in [facility]. This CM provided her with [employer] list and discussed [facility] at .
Requested she choose at least 3 preferences. She is rethinking [facility] and may want [facility] as primary. Requested attending to order PM&R consult for insurance auth.
[2025-05-14 15:25] VITALS: BP 153/83
--- NOTE | 2025-05-14 15:26 | CON.MD ---
Consultation - Medical
-
Chief Complaint:�Right patellar and left ankle fracture
�
History of Present Illness:�55-year-old female with PMH (as below) presented to [facility] on 05/09/2025 with mechanical fall resulting in right knee and left foot pain. She is found to have an acute comminuted and displaced patella
fracture status post ORIF 05/12/2025 with weightbearing as tolerated in knee immobilizer at all times. Left foot subacute fracture at the base of the fourth metatarsal and acute avulsion fracture of the left calcaneus treated with weightbearing as
tolerated in a cam boot, can perform gentle range of motion of the ankle at rest. Overall feeling OK, still with pain with weight bearing.
�
Past Medical History:�breast cancer (status post bilateral mastectomy, lymph node resection, chemo and radiation), hypertension, and GERD
Procedure History:�Bilateral mastectomy and lymph node resection
Family History:�None pertinent
�
Social History:�
Functional Level Premorbidly:�Independent with all activities�
Functional Level Currently:�Supervision bed mobility, min assist transfers, min assist ambulating 40 feet x 2 with rolling walker. Supervision to mod assist for ADLs. PT and OT recommending acute inpatient rehabilitation.
�
Tobacco:�Denies�
Alcohol:�Denies�
Drug use:�Denies�
�
Lives with:�Spouse
24-hour assistance available:�No
Number of floors:�1
# steps to enter:�13
Driving:�Yes
Occupation:�Works as a CPA
�
�
Allergies:�
�
Allergy/AdvReac Type Severity Reaction Status Date / Time
adhesive tape Allergy Rash Verified 05/11/25 09:26
Penicillins Allergy Unknown Verified 05/09/25 11:17
Sulfa (Sulfonamide Allergy Unknown Verified 05/09/25 11:17
Antibiotics)
surgical glue Allergy Rash Uncoded 05/11/25 09:30
Review of Systems:�
Constitutional: (x) abNormal _tired
Eye: (x) Normal _
Ear/Nose/Throat: (x) Normal _
Respiratory: (x) Normal _
Cardiovascular: (x) Normal _
Gastrointestinal: (x) Normal _
Genitourinary: (x) Normal _
Musculoskeletal: (x) abNormal _right knee and left ankle pain
Integumentary: (x) Normal _
Neurologic: (x) Normal _
Psychiatric: (x) Normal _
Endocrine: (x) Normal _
Hematologic/Lymphatic: (x) Normal _
Allergic/Immunologic: (x) Normal _
�
Medications:�
Active Current Visit Medication List
Category Date Time Status
Acetaminophen [Tylenol] Med 05/09/25 18:02 Active
650 mg PO Q4HPRN PRN
Anastrozole [Arimidex] Med 05/10/25 08:00 Active
1 mg PO DAILY
Artificial Tears (Pf) [Refresh Eye Drops (Pf)] Med 05/11/25 13:53 Active
1 drops OPHTH QIDPRN PRN
Bisacodyl [Dulcolax] Med 05/13/25 13:13 Active
10 mg RECTAL DAILYPRN PRN
Carvedilol [Coreg] Med 05/09/25 20:00 Active
6.25 mg PO BID
Docusate Sodium [Colace] Med 05/09/25 20:00 Active
100 mg PO BID
Docusate W/Senna [Senokot-S] Med 05/09/25 18:02 Active
1 tablet PO BIDPRN PRN
Ergocalciferol [Drisdol (Vitamin D2)] Med 05/10/25 08:00 Active
50,000 units PO MO
Flush (0.9% Sodium Chloride) [Flush (Nss)] Med 05/11/25 07:00 Active
See Dose Instructions IV PER PROTOCOL
HYDROmorphone [Dilaudid] Med 05/09/25 18:02 Active
0.5 mg IV Q4HPRN PRN
Heparin Med 05/09/25 18:02 Active
5,000 units SC Q8
Hydrocortisone [Hydrocortisone 2.5% Cream] Med 05/11/25 20:00 Active
See Dose Instructions TOPICAL BID
Losartan [Cozaar] Med 05/10/25 08:00 Active
100 mg PO DAILY
Ondansetron Injectable [Zofran] Med 05/12/25 14:02 Active
4 mg IV Q6HPRN PRN
Oxycodone [Roxicodone] Med 05/12/25 14:02 Active
10 mg PO Q4HPRN PRN
Oxycodone [Roxicodone] Med 05/09/25 18:02 Active
5 mg PO Q4HPRN PRN
Pantoprazole [Protonix] Med 05/10/25 08:00 Active
40 mg PO DAILY
Polyethylene Glycol Powder [Miralax] Med 05/09/25 18:02 Active
17 grams PO DAILYPRN PRN
�
Vitals:�
Temp Pulse Resp BP Pulse Ox
98.6 F 65 18 141/78 97
05/14/25 07:35 05/14/25 07:35 05/14/25 07:35 05/14/25 07:35 05/14/25 07:35
Height 5 ft 4 in
Actual Weight 65.136 kg
Body Mass Index (BMI) 24.7
�
Physical Exam:�
General Appearance/Observation: Well-developed, well-nourished female in no apparent distress.�
Pain/Comfort Assessment: Moderate pain right knee, left ankle
Mood/Affect: Appropriate�
�
Integumentary/Operative Site:�
�� Pressure Ulcer Evaluation: Blanchable redness left heel.
�
Eyes: Conjunctiva/Lids: normal��� Pupils: pupils equal round and reactive to light and Accommodation
Ears/Nose/Throat: oral mucosa moist, throat clear.������������ Lips/Teeth/Gums: normal
Neck: No muscle spasm or tenderness�
Cardiovascular: Heart: regular, no murmur�
Pulses: dorsalis pedis 2+ bilaterally�
Respiratory: Respiratory Effort/Chest Expansion: normal������ Auscultation: Clear to auscultation bilaterally
Gastrointestinal: abdomen not tender, no distension, normal abdominal bowel sounds
Genitourinary: No Billings�
Rectal Exam: Deferred�
Extremities:�Edema: None�Cyanosis: None�Trophic�changes: None
-Right knee immobilizer at all times
�
Neurology Exam:
Orientation: Alert, Oriented to self, Time, Place�
Memory: Intact for recent medical concerns
Repetition: Intact
Comprehension: Intact
Two step command: Intact
Cranial Nerves:
�� CNII:�Pupillary light reflex: Intact��
�� CN III, IV, : Extraocular muscles: Intact�
�� CN VII:�Facial movement: Symmetric
�� CN VIII:�Hearing: Normal
�� CN IX/X:�Speech & swallow: Normal,�Position of Uvula: Midline
�� CN XI:�Shoulder shrug: Symmetric
�� CN XII:�Tongue protrusion: Midline
Sensory:
�� Light touch: Intact in bilateral upper and lower extremities
�
Reflexes:
�� Biceps: 2+ bilaterally
�� Brachioradialis: 2+ bilaterally
�� Triceps: 2+ bilaterally
�� Patellar: 2+ left
�� Achilles: 0 bilaterally
�� Babinski: Down going bilaterally
�� Clonus: None
�� Louise: Negative bilaterally�
Cerebellar: Dysmetria/Ataxia: None�
Musculoskeletal: Motor: (Manual muscle scale 0-5)�
Muscle SA EF WE EE FF FA HF KE DF EHL PF
Right� 5 5 5 5 5 5 2* NT 5 5 5
Left 5 5 5 5 5 5 4 5 NT NT NT
NT was not tested
Tone: Normal in all extremities�
Range of Motion: Passively within normal limits in all extremities except for left ankle and right knee not assessed
�
Lab Results
Laboratory Data
05/14/25 08:28
05/14/25 09:56
PT 13.2 Sec (11.4-14.6) 05/12/25 05:53
INR 0.97 05/12/25 05:53
APTT 31.8 Sec (23.4-35.0) 05/12/25 05:53
Total Bilirubin Cancelled 05/14/25 09:47
AST Cancelled 05/14/25 09:47
ALT Cancelled 05/14/25 09:47
Alkaline Phosphatase Cancelled 05/14/25 09:47
Total Protein Cancelled 05/14/25 09:47
Albumin Cancelled 05/14/25 09:47
�
Diagnostic Results:�as per HPI�
�
Assessment
55-year-old F PMH (breast cancer (status post bilateral mastectomy, lymph node resection, chemo and radiation), hypertension, and GERD�) with acute comminuted and displaced patella fracture status post ORIF 05/12/2025 with weightbearing as tolerated
in knee immobilizer at all times and left foot subacute fracture at the base of the fourth metatarsal and acute avulsion fracture of the left calcaneus treated with weightbearing as tolerated in a CAM boot resulting in ADL and ambulatory dysfunction.
Plan�
PM&R�PT/OT to increase independence with ADLs, improve balance, coordination, endurance, strength, mobility, community reintegration, decreased burden of care on others and family education.�
�
Right patellar comminuted fracture s/p ORIF: Weightbearing as tolerated in knee immobilizer at all times. Staple removal at 2-weeks.
Left calcaneal avulsion fracture: Weightbearing as tolerated in cam boot
Left subacute fracture fourth metatarsal: Weightbearing as tolerated in CAM boot
�
HTN: Carvedilol 6.25 mg twice daily, losartan 100 mg daily, monitor closely�
Expected postoperative anemia: 11 from 11.4 from 11.7 from 12.4, monitor.�
Breast cancer: Anastrozole
Psych: Monitor mood, medications as needed.�
Skin: monitor for pressure sores/rashes/lesions.�
Pain: acetaminophen or oxycodone as needed.�
Bowel: Colace and Senna, PRN bisacodyl.�
Bladder: Time void, PVRs, PRN straight cath.�
GERD: Pantoprazole�
DVT Prophylaxis: Mechanical and heparin
Pulmonary: Incentive spirometry�
Safety: Continue to reinforce assistance with all transfers.�
Cde Status:� Full code
Dispo�(date/plan/equipment needs): Home with family care.� Social history reviewed.�
Functional and Medical Goals:�Modified Independent with ADL�s, ambulation, transfers�
Discharge Destination:�Acute inpatient rehabilitation
A total of 60 minutes were spent with the patient preparing for the evaluation, obtaining history, performing examination and evaluation, counseling, data review, case management, care coordination, supervisor order takers, and EMR documentation.
�
Thank you for allowing me to care for your patient. Please contact me with any questions or concerns.
Consultation
-
Date/Time Consultation Performed: 05/14/25
Requesting Provider: Dr. Timo Ricks
Performing Provider: Dr. Alex Delacruz
Reason for Consultation: Trouble walking.
[2025-05-14 23:21] VITALS: BP 132/70
[2025-05-15 08:15] VITALS: BP 162/78
[2025-05-15] MEDS: PROTONIX 40 MG PO (08:23)
[2025-05-15] MEDS: HEPARIN 5000 UNITS SC ×3 (08:23→23:51)
[2025-05-15] MEDS: COLACE 100 MG PO ×2 (08:24→19:46)
[2025-05-15] MEDS: ROXICODONE 5 MG PO ×3 (08:24→22:18)
[2025-05-15] MEDS: COZAAR 100 MG PO (08:25)
[2025-05-15] MEDS: ARIMIDEX 1 MG PO (08:25)
[2025-05-15] MEDS: COREG 6.25 MG PO ×2 (08:26→19:46)
[2025-05-15] MEDS: HYDROCORTISONE 2.5% CREAM 1 APPLIC TOPICAL ×2 (08:51→21:28)
--- NOTE | 2025-05-15 13:51 | W.PN.HOSP.TC ---
Today's Communication/Plan
-
d/c planning for acute rehab
Assessment / Plan
Assessment / Plan
Right patellar fracture:
- CT RLE : Acute comminuted displaced right patellar fracture. Associated hematoma, soft tissue swelling and small suprapatellar joint effusion.
- Keep in immobilizer, WBAT
- Pain control as needed
- s/p ORIF of patella on Saturday
- Physiatry evaluated and patient recommended for acute rehab
Acute avulsion fracture of calcaneum
History of metatarsal stress fracture
- X-ray shows possible fracture of base of fourth metatarsal - presumably old changes
- CT LLE : Acute avulsion fracture anterior, lateral calcaneus as above. No other acute fracture identified.
- Ortho recommended CAM boot
Essential Hypertension:
- Continue home losartan 100 mg p.o. daily and carvedilol 6.25 mg p.o. daily
GERD:
- Continue home Protonix daily
History of breast cancer:
- Status post bilateral mastectomy, lymph node resection, chemoradiation
- Primary oncology team at [place], breast surgeon at [facility]
- Currently without recurrence
- Continue anastrozole 1 mg daily
Right eye congestion
- Possible irritation from incomplete closure of palpebral fissure during sleep
- refresh eye drops ordered
- recommended to follow with ophthalmology post discharge
DVT prophylaxis: Subcu heparin
CODE STATUS: Full code
Anticipated Discharge: Today
Subjective/Interval History
-
Date of Service: May 15, 2025
Resting comfortably in bed
No new issues overnight
Objective Data
-
Vital Signs:
Vital Signs
Temp Pulse Resp BP Pulse Ox
98.1 F 64 16 162/78 99
05/15/25 08:15 05/15/25 08:15 05/15/25 08:15 05/15/25 08:15 05/15/25 08:15
I&O
05/14/25 05/15/25 05/16/25
06:59 06:59 06:59
Intake Total 860 / 860 480 / 480
Balance 860 / 860 480 / 480
Review of Systems
-
Respiratory: Reports No Symptoms
Cardiac: Reports No Symptoms
Abdomen/GI: Reports No Symptoms
Physical Exam
-
General: Comfortable
HEENT: Other (Red eye); Negative Oxygen
Musculoskeletal: Other (Right knee immobilizer, right knee effusion)
Neuro: Awake, Alert, Oriented, No Motor Deficits and Nonfocal/Grossly Intact
Psych: Calm
--- NOTE | 2025-05-15 15:02 | CM ---
Nursing provided CM list of acute rehab choices
Referrals sent to 1). [facility], [facility] and 3) [facility]
PMR completed and acute rehab recs for eval
Referrals pending and pt will require auth
Discharge Disposition- acute rehab pending auth
[2025-05-15 15:45] VITALS: BP 158/77
[2025-05-15 16:34] VITALS: BP 131/86; PULSE 95
[2025-05-15 23:28] VITALS: BP 115/76
[2025-05-16 07:40] VITALS: BP 132/68
[2025-05-16] MEDS: COZAAR 100 MG PO (09:59)
[2025-05-16] MEDS: HYDROCORTISONE 2.5% CREAM 1 APPLIC TOPICAL ×2 (09:59→19:32)
[2025-05-16] MEDS: PROTONIX 40 MG PO (10:00)
[2025-05-16] MEDS: ROXICODONE 5 MG PO ×3 (10:00→22:29)
[2025-05-16] MEDS: COREG 6.25 MG PO ×2 (10:00→19:31)
[2025-05-16] MEDS: ARIMIDEX 1 MG PO (10:01)
[2025-05-16] MEDS: HEPARIN 5000 UNITS SC ×3 (10:01→23:56)
[2025-05-16] MEDS: COLACE 100 MG PO ×2 (10:01→19:31)
--- NOTE | 2025-05-16 10:02 | W.PN.HOSP.TC ---
Today's Communication/Plan
-
Awaiting for acute rehab bed.
Continue current care.
Assessment / Plan
Assessment / Plan
55-year-old woman with a medical history of:
breast cancer (status post bilateral mastectomy, lymph node resection, chemo and radiation),
hypertension,
GERD
presented from home with right knee and left foot pain following a mechanical fall. She sustained a small horizontal laceration on her anterior right knee with generalized swelling of the joint and some mild ecchymosis on the lateral aspect of her
left foot.
1. Right patellar fracture:
- CT RLE : Acute comminuted displaced right patellar fracture. Associated hematoma, soft tissue swelling and small suprapatellar joint effusion.
- Keep in immobilizer, WBAT
- Pain control as needed
- s/p ORIF of patella on Saturday
- Physiatry evaluated and patient recommended for acute rehab
2. Acute avulsion fracture of calcaneum
History of metatarsal stress fracture
- X-ray shows possible fracture of base of fourth metatarsal - presumably old changes
- CT LLE : Acute avulsion fracture anterior, lateral calcaneus as above. No other acute fracture identified.
- Ortho recommended CAM boot
3. Essential Hypertension:
- Continue home losartan 100 mg p.o. daily and carvedilol 6.25 mg p.o. daily
4. GERD:
- Continue home Protonix daily
5. History of breast cancer:
- Status post bilateral mastectomy, lymph node resection, chemoradiation
- Primary oncology team at [place], breast surgeon at [facility]
- Currently without recurrence
- Continue anastrozole 1 mg daily
6. Right eye congestion
- Possible irritation from incomplete closure of palpebral fissure during sleep
- refresh eye drops ordered
- recommended to follow with ophthalmology post discharge
DVT prophylaxis: Subcu heparin
CODE STATUS: Full code
Anticipated Discharge: 24 - 48 hours
Subjective/Interval History
-
Date of Service: May 16, 2025
Feels well, no changes.
Objective Data
-
Vital Signs:
Vital Signs
Temp Pulse Resp BP Pulse Ox
98.5 F 60 18 132/68 98
05/16/25 07:40 05/16/25 07:40 05/16/25 07:40 05/16/25 07:40 05/16/25 07:40
I&O
05/15/25 05/16/25 05/17/25
06:59 06:59 06:59
Intake Total 480 / 480 840 / 840
Balance 480 / 480 840 / 840
Review of Systems
-
History Source: Patient
All other systems: Reviewed and negative
Physical Exam
-
General: Well Developed, Well Nourished, No Apparent Distress, Comfortable and Conversant
HEENT: Normocephalic, Atraumatic, Moist Mucous Membranes, Nose Appears Normal and Ears Appear Normal
Respiratory: Clear to Auscultation
Cardiac: Regular Rhythm, S1/S2 and Murmur
GI: Soft, Nontender and Nondistended
Musculoskeletal: No Clubbing, No Cyanosis and No Edema
Skin: Warm and Dry
Neuro: Awake, Alert, Oriented and AO x 3
Psych: Calm
Data Reviewed
-
Labs: Labs Reviewed by me
[2025-05-16 13:40] VITALS: BP 124/79; BP 138/93; PULSE 73
[2025-05-16 15:13] VITALS: BP 112/74
[2025-05-16 23:33] VITALS: BP 114/65
[2025-05-17 07:45] VITALS: BP 107/80
[2025-05-17] MEDS: COZAAR 100 MG PO (08:00)
[2025-05-17] MEDS: COREG 6.25 MG PO ×2 (08:01→20:29)
[2025-05-17] MEDS: HEPARIN 5000 UNITS SC ×3 (08:01→23:25)
[2025-05-17] MEDS: ARIMIDEX 1 MG PO (08:01)
[2025-05-17] MEDS: PROTONIX 40 MG PO (08:01)
[2025-05-17] MEDS: HYDROCORTISONE 2.5% CREAM 1 APPLIC TOPICAL ×2 (08:01→20:25)
[2025-05-17] MEDS: COLACE 100 MG PO ×2 (08:01→20:29)
[2025-05-17] MEDS: DRISDOL (VITAMIN D2) 50000 UNITS PO (08:06)
[2025-05-17] MEDS: SENOKOT-S 1 TABLET PO (08:08)
[2025-05-17 08:14] VITALS: BP 107/80
--- NOTE | 2025-05-17 10:51 | CM ---
Reviewed the chart notes and spoke with the patient at the bedside. [facility] clinicals sent to [facility] at their request. [facility] declined patient. CM continues to be available to patient/family and is monitoring medical plan for needs at
discharge.
Plan: Discharge to acute rehab once bed secured and auth obtained.
--- NOTE | 2025-05-17 12:50 | W.PN.HOSP.TC ---
Today's Communication/Plan
-
Awaiting for acute rehab bed.
Disposition efforts
Assessment / Plan
Assessment / Plan
55-year-old woman with a medical history of:
breast cancer (status post bilateral mastectomy, lymph node resection, chemo and radiation),
hypertension,
GERD
presented from home with right knee and left foot pain following a mechanical fall. She sustained a small horizontal laceration on her anterior right knee with generalized swelling of the joint and some mild ecchymosis on the lateral aspect of her
left foot.
1. Right patellar fracture:
- CT RLE : Acute comminuted displaced right patellar fracture. Associated hematoma, soft tissue swelling and small suprapatellar joint effusion.
- Keep in immobilizer, WBAT
- Pain control as needed
- s/p ORIF of patella on Saturday
- Physiatry evaluated and patient recommended for acute rehab
2. Acute avulsion fracture of calcaneum
History of metatarsal stress fracture
- X-ray shows possible fracture of base of fourth metatarsal - presumably old changes
- CT LLE : Acute avulsion fracture anterior, lateral calcaneus as above. No other acute fracture identified.
- Ortho recommended CAM boot
3. Essential Hypertension:
- Continue home losartan 100 mg p.o. daily and carvedilol 6.25 mg p.o. daily
4. GERD:
- Continue home Protonix daily
5. History of breast cancer:
- Status post bilateral mastectomy, lymph node resection, chemoradiation
- Primary oncology team at [place], breast surgeon at [facility]
- Currently without recurrence
- Continue anastrozole 1 mg daily
6. Right eye congestion
- Possible irritation from incomplete closure of palpebral fissure during sleep
- refresh eye drops ordered
- recommended to follow with ophthalmology post discharge
DVT prophylaxis: Subcu heparin
CODE STATUS: Full code
Anticipated Discharge: Within 24 hours
Subjective/Interval History
-
Date of Service: May 17, 2025
no acute events
Objective Data
-
Vital Signs:
Vital Signs
Temp Pulse Resp BP Pulse Ox
98.2 F 65 16 107/80 98
05/17/25 07:45 05/17/25 08:00 05/17/25 07:45 05/17/25 08:00 05/17/25 07:45
I&O
05/16/25 05/17/25 05/18/25
06:59 06:59 06:59
Intake Total 840 / 840 1320 / 1320
Balance 840 / 840 1320 / 1320
Review of Systems
-
History Source: Patient
All other systems: Reviewed and negative
Physical Exam
-
General: Well Developed, Well Nourished, No Apparent Distress, Comfortable and Conversant
HEENT: Normocephalic, Atraumatic, Moist Mucous Membranes, Nose Appears Normal and Ears Appear Normal
Respiratory: Clear to Auscultation
Cardiac: Regular Rhythm, S1/S2 and Murmur
GI: Soft, Nontender and Nondistended
Musculoskeletal: No Clubbing, No Cyanosis and No Edema
Skin: Warm and Dry
Neuro: Awake, Alert, Oriented and AO x 3
Psych: Calm
Data Reviewed
-
Diagnostic Radiology: Report Reviewed by me
CT Scan: Report Reviewed by me
Labs: Labs Reviewed by me
[2025-05-17 14:53] VITALS: BP 129/88; PULSE 100
[2025-05-17 14:54] VITALS: BP 129/88; PULSE 100
[2025-05-17 15:40] VITALS: BP 119/66
[2025-05-17 23:18] VITALS: BP 122/90
[2025-05-17] MEDS: TYLENOL 650 MG PO (23:32)
[2025-05-18 08:37] VITALS: BP 137/82
[2025-05-18] MEDS: COLACE 100 MG PO ×2 (08:53→20:50)
[2025-05-18] MEDS: COZAAR 100 MG PO (08:53)
[2025-05-18] MEDS: HEPARIN 5000 UNITS SC ×3 (08:54→23:00)
[2025-05-18] MEDS: HYDROCORTISONE 2.5% CREAM 1 APPLIC TOPICAL ×2 (08:54→20:53)
[2025-05-18] MEDS: COREG 6.25 MG PO ×2 (08:54→20:50)
[2025-05-18] MEDS: PROTONIX 40 MG PO (08:54)
[2025-05-18] MEDS: ARIMIDEX 1 MG PO (08:54)
[2025-05-18 11:25] VITALS: BP 150/78
--- NOTE | 2025-05-18 12:43 | W.PN.HOSP.TC ---
Today's Communication/Plan
-
Awaiting discharge, disposition efforts
Assessment / Plan
Assessment / Plan
55-year-old woman with a medical history of:
breast cancer (status post bilateral mastectomy, lymph node resection, chemo and radiation),
hypertension,
GERD
presented from home with right knee and left foot pain following a mechanical fall. She sustained a small horizontal laceration on her anterior right knee with generalized swelling of the joint and some mild ecchymosis on the lateral aspect of her
left foot.
1. Right patellar fracture:
- CT RLE : Acute comminuted displaced right patellar fracture. Associated hematoma, soft tissue swelling and small suprapatellar joint effusion.
- Keep in immobilizer, WBAT
- Pain control as needed
- s/p ORIF of patella on Saturday
- Physiatry evaluated and patient recommended for acute rehab
2. Acute avulsion fracture of calcaneum
History of metatarsal stress fracture
- X-ray shows possible fracture of base of fourth metatarsal - presumably old changes
- CT LLE : Acute avulsion fracture anterior, lateral calcaneus as above. No other acute fracture identified.
- Ortho recommended CAM boot
3. Essential Hypertension:
- Continue home losartan 100 mg p.o. daily and carvedilol 6.25 mg p.o. daily
4. GERD:
- Continue home Protonix daily
5. History of breast cancer:
- Status post bilateral mastectomy, lymph node resection, chemoradiation
- Primary oncology team at [place], breast surgeon at [facility]
- Currently without recurrence
- Continue anastrozole 1 mg daily
6. Right eye congestion
- Possible irritation from incomplete closure of palpebral fissure during sleep
- refresh eye drops ordered
- recommended to follow with ophthalmology post discharge
DVT prophylaxis: Subcu heparin
CODE STATUS: Full code
Anticipated Discharge: Within 24 hours
Subjective/Interval History
-
Date of Service: May 18, 2025
No events overnight
Objective Data
-
Vital Signs:
Vital Signs
Temp Pulse Resp BP Pulse Ox
98.3 F 84 18 150/78 97
05/18/25 11:25 05/18/25 11:25 05/18/25 11:25 05/18/25 11:25 05/18/25 11:25
I&O
05/17/25 05/18/25 05/19/25
06:59 06:59 06:59
Intake Total 1320 / 1320 1080 / 1080
Balance 1320 / 1320 1080 / 1080
Review of Systems
-
History Source: Patient
All other systems: Reviewed and negative
Physical Exam
-
General: Well Developed, Well Nourished, No Apparent Distress, Comfortable and Conversant
HEENT: Normocephalic, Atraumatic, Moist Mucous Membranes, Nose Appears Normal and Ears Appear Normal
Respiratory: Clear to Auscultation
Cardiac: Regular Rhythm, S1/S2 and Murmur
GI: Soft, Nontender and Nondistended
Musculoskeletal: No Clubbing, No Cyanosis and No Edema
Skin: Warm and Dry
Neuro: Awake, Alert, Oriented and AO x 3
Psych: Calm
Data Reviewed
-
Diagnostic Radiology: Report Reviewed by me
CT Scan: Report Reviewed by me
Labs: Labs Reviewed by me
--- NOTE | 2025-05-18 14:47 | CM ---
Patient seen at bedside
referrals for acute rehab in [place]
declined [facility] pending decision
called liaison Karol Mccoy [phone] for [facility], updated [facility] & is under review & will get back to
she requested Labs faxed to her at [phone]
patient agreeable to [facility]
Will need auth once bed secured
PLAN: Discharge to acute rehab once bed secured and auth obtained.
[2025-05-18 15:30] VITALS: BP 135/76
[2025-05-18] MEDS: TYLENOL 650 MG PO (22:07)
[2025-05-18] MEDS: ROXICODONE 5 MG PO (23:01)
[2025-05-18 23:21] VITALS: BP 115/75
--- NOTE | 2025-05-19 02:24 | DOWNTIME ---
There was a [employer] Downtime on 05/19/2025 from 0100 to 05/19/2025 at 0215. Downtime documentation of patient's care, including medication administrations, has been reconciled in the electronic record per guidelines. Refer to the
patient's paper chart under the miscellaneous tab to see printed paper medication records and downtime forms.
[2025-05-19 07:07] VITALS: BP 155/71
[2025-05-19 07:24] LABS: Hematocrit 37.8 % (37.0-47.0); Hemoglobin 11.8 g/dL (12.0-16.0); Mean Corp Hgb Conc. 31.2 g/dL (33.0-37.0); Mean Corpuscular Volume 92.4 fL (81.0-99.0); Platelet Count 333 10^3/uL (130-400); Red Cell Dist. Width 13.5 % (11.5-14.5)
[2025-05-19 07:52] LABS: Blood Urea Nitrogen 23 mg/dl (7-17); Calcium 9.5 mg/dl (8.4-10.2); Carbon Dioxide 24 mmol/L (22-30); Chloride 103 mmol/L (98-107); Estimated Creatinine Clearance 77 ml/min; Glucose 114 mg/dl (70-99); Potassium 4.8 mmol/L (3.5-5.1); Sodium 134 mmol/L (135-145); eGFR > 60.00
[2025-05-19] MEDS: PROTONIX 40 MG PO (09:18)
[2025-05-19] MEDS: COLACE 100 MG PO ×2 (09:18→19:43)
[2025-05-19] MEDS: ARIMIDEX 1 MG PO (09:18)
[2025-05-19] MEDS: COREG 6.25 MG PO ×2 (09:18→19:43)
[2025-05-19] MEDS: COZAAR 100 MG PO (09:18)
[2025-05-19] MEDS: HEPARIN 5000 UNITS SC ×2 (09:18→16:56)
[2025-05-19] MEDS: HYDROCORTISONE 2.5% CREAM 1 APPLIC TOPICAL ×2 (09:19→19:43)
[2025-05-19 10:00] VITALS: BP 117/81; PULSE 71
--- NOTE | 2025-05-19 10:16 | CM ---
Addendum entered by Vanessa Hernandez 05/19/25 16:33:
CM called [facility] -[phone] spoke with Vanessa who stated high call volume unable to get authorization this evening
CM will call tomorrow am to initiate authorization-
Addendum entered by Vanessa Hernandez 05/19/25 13:58:
rec call from Karol zaragoza - will accept patient for Acute Rehab, bed avail tomorrow
[facility] NPI #: [id number], Tax ID #: [id number]
Dr. Sarai Mccord NPI #: [id number]
Karol requests once auth obtained to call admissions with information at [phone] ([place] or November Ninoska)
PLAN: [facility], once auth obtained
Report #: [address] [place] [address] - [phone]
Fax #: [phone]
Original Note:
spoke with Karol zaragoza [facility] [phone]
decision pending on acceptance, stated will call patient
stated to liaison patient is ready for dc and CM will need to obtain auth
PLAN: Acute Rehab, pending acceptance
--- NOTE | 2025-05-19 13:53 | W.PN.HOSP.TC ---
Today's Communication/Plan
-
Awaiting discharge, disposition efforts
Assessment / Plan
Assessment / Plan
55-year-old woman with a medical history of:
breast cancer (status post bilateral mastectomy, lymph node resection, chemo and radiation),
hypertension,
GERD
presented from home with right knee and left foot pain following a mechanical fall. She sustained a small horizontal laceration on her anterior right knee with generalized swelling of the joint and some mild ecchymosis on the lateral aspect of her
left foot.
1. Right patellar fracture:
- CT RLE : Acute comminuted displaced right patellar fracture. Associated hematoma, soft tissue swelling and small suprapatellar joint effusion.
- Keep in immobilizer, WBAT
- Pain control as needed
- s/p ORIF of patella on Saturday
- Physiatry evaluated and patient recommended for acute rehab
2. Acute avulsion fracture of calcaneum
History of metatarsal stress fracture
- X-ray shows possible fracture of base of fourth metatarsal - presumably old changes
- CT LLE : Acute avulsion fracture anterior, lateral calcaneus as above. No other acute fracture identified.
- Ortho recommended CAM boot
3. Essential Hypertension:
- Continue home losartan 100 mg p.o. daily and carvedilol 6.25 mg p.o. daily
4. GERD:
- Continue home Protonix daily
5. History of breast cancer:
- Status post bilateral mastectomy, lymph node resection, chemoradiation
- Primary oncology team at [place], breast surgeon at [facility]
- Currently without recurrence
- Continue anastrozole 1 mg daily
6. Right eye congestion
- Possible irritation from incomplete closure of palpebral fissure during sleep
- refresh eye drops ordered
- recommended to follow with ophthalmology post discharge
7. Hyponatremia
-mild
-monitor
DVT prophylaxis: Subcu heparin
CODE STATUS: Full code
Anticipated Discharge: Today
Subjective/Interval History
-
Date of Service: May 19, 2025
No acute events overnight
Objective Data
-
Labs:
Laboratory Results
05/19/25
06:22
WBC 10.1
Hgb 11.8 L
Hct 37.8
Plt Count 333 D
Sodium 134 L
Potassium 4.8
Chloride 103
Carbon Dioxide 24
BUN 23 H
Creatinine 0.7
Glucose 114 H
Calcium 9.5
Vital Signs:
Vital Signs
Temp Pulse Resp BP Pulse Ox
98.3 F 65 16 155/71 99
05/19/25 07:07 05/19/25 09:18 05/19/25 07:07 05/19/25 09:18 05/19/25 07:07
I&O
05/18/25 05/19/25 05/20/25
06:59 06:59 06:59
Intake Total 1080 / 1080 240 / 240
Balance 1080 / 1080 240 / 240
Review of Systems
-
History Source: Patient
All other systems: Reviewed and negative
Data Reviewed
-
Diagnostic Radiology: Report Reviewed by me
CT Scan: Report Reviewed by me
Labs: Labs Reviewed by me
[2025-05-19 15:43] VITALS: BP 156/74
[2025-05-19] MEDS: ROXICODONE 5 MG PO (21:43)
[2025-05-19 23:22] VITALS: BP 121/64
[2025-05-20] MEDS: HEPARIN 5000 UNITS SC ×2 (00:35→08:59)
[2025-05-20 07:50] VITALS: BP 128/68
[2025-05-20] MEDS: COLACE 100 MG PO (08:58)
[2025-05-20] MEDS: COREG 6.25 MG PO (08:59)
[2025-05-20] MEDS: ARIMIDEX 1 MG PO (08:59)
[2025-05-20] MEDS: PROTONIX 40 MG PO (08:59)
[2025-05-20] MEDS: COZAAR 100 MG PO (08:59)
[2025-05-20] MEDS: HYDROCORTISONE 2.5% CREAM 1 APPLIC TOPICAL (09:00)
[2025-05-20] MEDS: ROXICODONE 5 MG PO ×2 (09:14→13:52)
[2025-05-20] MEDS: SENOKOT-S 1 TABLET PO (09:14)
--- NOTE | 2025-05-20 09:56 | CM ---
Addendum entered by Vanessa Hernandez 05/20/25 11:16:
patient agreeable with wheelchair van, cost $235, # given to patient to call once transport set
[facility]araogza would like 2pm transport set up, community engagement manager aware
plan: [facility], [address]
Report #: 3rd floor - [phone]
Fax #: [phone]
transport via [facility] van-form on chart
Original Note:
spoke with Jr at [employer] [phone]
auth approved for [facility]
start 05/20 NRD 05/24
call with updates to [phone]
AUTH APPROVAL # [id number]
Auth information given to liatabatha Mccoy - she will call cm back with time
PLAN: [facility], [address]
Report #: 3rd floor - [phone]
Fax #: [phone]
--- NOTE | 2025-05-20 12:22 | W.PN.HOSP.TC ---
Today's Communication/Plan
-
Right knee immobilizer at all time and left lower extremity fracture boot
Weightbearing as tolerated
Ice with elevation to control swelling and pain
Heparin for DVT prophylactics per medicine and mechanical devices
Skin clip removal right knee 2 weeks postop
Follow-up with orthopedics 2 weeks for x-ray
Follow-up PCP, orthopedics, Ophthalmology outpatient
Assessment / Plan
Assessment / Plan
55-year-old woman with a medical history of:
breast cancer (status post bilateral mastectomy, lymph node resection, chemo and radiation),
hypertension,
GERD
presented from home with right knee and left foot pain following a mechanical fall. She sustained a small horizontal laceration on her anterior right knee with generalized swelling of the joint and some mild ecchymosis on the lateral aspect of her
left foot.
1. Right patellar fracture:
- CT RLE : Acute comminuted displaced right patellar fracture. Associated hematoma, soft tissue swelling and small suprapatellar joint effusion.
- Keep in immobilizer, WBAT
- Pain control as needed
- s/p ORIF of patella on Saturday
- Physiatry evaluated and patient recommended for acute rehab
2. Acute avulsion fracture of calcaneum
History of metatarsal stress fracture
- X-ray shows possible fracture of base of fourth metatarsal - presumably old changes
- CT LLE : Acute avulsion fracture anterior, lateral calcaneus as above. No other acute fracture identified.
- Ortho recommended CAM boot
3. Essential Hypertension:
- Continue home losartan 100 mg p.o. daily and carvedilol 6.25 mg p.o. daily
4. GERD:
- Continue home Protonix daily
5. History of breast cancer:
- Status post bilateral mastectomy, lymph node resection, chemoradiation
- Primary oncology team at [place], breast surgeon at [facility]
- Currently without recurrence
- Continue anastrozole 1 mg daily
6. Right eye congestion
- Possible irritation from incomplete closure of palpebral fissure during sleep
- refresh eye drops ordered
- recommended to follow with ophthalmology post discharge
7. Hyponatremia
-mild
-monitor
DVT prophylaxis: Subcu heparin
CODE STATUS: Full code
More than 30 minutes spent in discharge including
Final examination of the patient
Summarizing hospital stay
Instructions for continuing care to all relevant caregivers
Preparation of discharge records, prescriptions, and referral forms
Total time spent (in minutes): 36
Anticipated Discharge: Today
Subjective/Interval History
-
Date of Service: May 20, 2025
No acute events overnight
Objective Data
-
Vital Signs:
Vital Signs
Temp Pulse Resp BP Pulse Ox
98.2 F 59 18 128/68 100
05/20/25 07:50 05/20/25 08:59 05/20/25 07:50 05/20/25 08:59 05/20/25 07:50
I&O
05/19/25 05/20/25 05/21/25
06:59 06:59 06:59
Intake Total 240 / 240 1680 / 1680 240 / 240
Balance 240 / 240 1680 / 1680 240 / 240
Review of Systems
-
History Source: Patient
All other systems: Not reviewed unless documented
Data Reviewed
-
Diagnostic Radiology: Report Reviewed by me
CT Scan: Report Reviewed by me
Labs: Labs Reviewed by me
--- NOTE | 2025-05-20 12:23 | W.DS.TRANS ---
DC Summary - Sales Marketing Manager
-
Discharge Instructions:
Discharge Diagnosis/Procedures Right patellar fracture
Acute avulsion fracture of calcaneum
Diet Low Cholesterol,Low Fat
Blood Work cbc and bmp in 1 week with pcp
Instructions:
Stand-Alone Forms:
Changes to Home Medications: Yes
Discharge Medications:
DC Medications w/original date entered in [facility]
anastrozole 1 mg tablet 1 mg PO DAILY Antineoplastic Agent, 05/09/25
carvedilol 6.25 mg tablet (Coreg) 6.25 mg PO BID Blood Pressure 05/09/25
ergocalciferol (vitamin D2) 1,250 mcg (50,000 unit) capsule 1,250 mcg PO MO Supplement 05/09/25
losartan 100 mg tablet 100 mg PO DAILY Blood Pressure 05/09/25
pantoprazole 40 mg tablet,delayed release (Protonix) 40 mg PO DAILY GERD 05/09/25
hydrocortisone 2.5 % topical cream 1 applic topical BID #0 grams 05/20/25
oxycodone 5 mg tablet 5 mg PO Q4HPRN PRN moderate pain #12 tabs 05/20/25
polyvinyl alcohol-povidone (PF) 1.4 %-0.6 % eye drops in a dropperette (Refresh Classic (PF)) 1 drops ophthalmic (eye) QIDPRN PRN dry eye #0 ea 05/20/25
Home Medication Changes
hydrocortisone 2.5 % topical cream 1 applic topical BID #0 grams 05/20/25
oxycodone 5 mg tablet 5 mg PO Q4HPRN PRN moderate pain #12 tabs 05/20/25
polyvinyl alcohol-povidone (PF) 1.4 %-0.6 % eye drops in a dropperette (Refresh Classic (PF)) 1 drops ophthalmic (eye) QIDPRN PRN dry eye #0 ea 05/20/25
Pending Results: No
[2025-05-20 13:58] VITALS: BP 122/69
== END 2025-05-20 14:58 | DRG 516 ==
LOC: 2 SOUTH 15:31
PROVIDERS: Hospitalist; Orthopaedic Surgery Hand Surgery; ADMITTING PHYSICIAN Internal Medicine; ATTENDING PHYSICIAN Internal Medicine; CONSULT PHYSICIAN Physical Medicine & Rehabilitation; EMERGENCY PHYSICIAN Student in an Organized Health Care Education/Training Program; OTHER PHYSICIAN Orthopaedic Surgery
PROC: 0QSD04Z Reposition Right Patella with Internal Fixation Device, Open Approach (ICD-10-PCS; 2025-05-12)
DX: S82.041A Displaced comminuted fracture of right patella, initial encounter for closed fracture (principal); E87.1 Hypo-osmolality and hyponatremia; Z90.13 Acquired absence of bilateral breasts and nipples; Z85.3 Personal history of malignant neoplasm of breast; K21.9 Gastro-esophageal reflux disease without esophagitis; I10 Essential (primary) hypertension; W19.XXXA Unspecified fall, initial encounter; Z88.2 Allergy status to sulfonamides; Z88.0 Allergy status to penicillin; Z79.899 Other long term (current) drug therapy; Z79.811 Long term (current) use of aromatase inhibitors; S92.025A Nondisplaced fracture of anterior process of left calcaneus, initial encounter for closed fracture; D64.9 Anemia, unspecified; S81.011A Laceration without foreign body, right knee, initial encounter
CPT/HCPCS: 73560; 73564; 73630; 73700; 76000; 80048; 80053; 85025; 85027; 85610; 85730; 86850; 86900; 86901; 96374; 96375; 96376; 97116; 97163; 97167; 97530; 97535; 99285